=== PATIENT | male | born 1975 | race Caucasian/White ===

== ENCOUNTER 2017-12-03 10:47 | Emergency (ER) | payer SELFPAY ==
[~2017-12-03] VITALS: Ht 177.8 cm; Wt 98.0 kg
[2017-12-03 10:56] VITALS: BP 124/87
--- NOTE | 2017-12-03 13:05 | NUR ---
Patient to bed 2. RN evaluating patient at bedside.
--- NOTE | 2017-12-03 13:07 | NUR ---
PATIENT PRESENTS TO ED WITH C/O POUNDING HEADACHE WITH NAUSES X 3 DAYS----DENIES INJURY/TRAUMA NO COLD SYMPTOMS ASSOCIATED PER PT----SENSATIVE TO LIGHT AND SOUNDS AMBULATORY WITH STEADY GAIT, NO FACIAL ASYMMETRY NOTED, FULL CLEAR SPEECH HX---DENIES RX---NONE .DENIES V/D; SKIN IS PINK/WARM/DRY; AAOX4 WITH EVEN AND STEADY GAIT; LUNGS CLEAR BL; HR EVEN AND REGULAR; PT DENIES ANY FEVER, CP, SOB, OR COUGH AT THIS TIME; PATIENT STATES PAIN OF 8/10 AT THIS TIME; VSS; PATIENT POSITIONED FOR COMFORT; HOB ELEVATED; BEDRAILS UP X2; BED DOWN. ER MD MADE AWARE OF PT STATUS.
[2017-12-03] MEDS ORDERED: METOCLOPRAMIDE 10 MG/2 ML INJ VIAL IVP ONE (14:05)
[2017-12-03] MEDS ORDERED: MORPHINE SULFATE 4 MG/ML SYR IVP ONE (14:05)
[2017-12-03 14:56] LABS: BASOPHILS # (AUTO) 0.3 K/uL (0.00-0.22); HEMATOCRIT 50.1 % (36-52); LYMPHOCYTES # (AUTO) 2.2 K/uL (2.0-11.5); MEAN CORPUSCULAR HEMOGLOBIN 32 pg (27-31); MEAN CORPUSCULAR HGB CONC 34 g/dL (33-37); MEAN CORPUSCULAR VOLUME 93 fL (80-94); MONOCYTES # (AUTO) 1.6 K/uL (0.8-1.0); NEUTROPHILS # (AUTO) 8.4 K/uL (1.8-7.7); PLATELET COUNT (AUTO) 284 K/uL (140-450); RED BLOOD CELL COUNT(AUTO) 5.37 MIL/uL (4.20-6.10); RED CELL DISTRIBUTION WIDTH 11.9 % (11.6-13.7); WHITE BLOOD COUNT (AUTO) 12.5 K/uL (4.8-10.8)
[2017-12-03 15:19] LABS: ANION GAP 13.8 (8-16); CARBON DIOXIDE 27.1 mmol/L (21-32); POTASSIUM 3.9 mmol/L (3.5-5.1)
[2017-12-03 15:25] LABS: ALBUMIN 3.9 g/dL (3.4-5.0); TOTAL BILIRUBIN 1.5 mg/dL (0.0-1.0)
[2017-12-03 17:17] LABS: CSF GLUCOSE 64 mg/dL (40-70); CSF PROTEIN 18.2 mg/dL (15-45)
[2017-12-03 17:44] LABS: APPEARANCE,URINE CLEAR (CLEAR); BILIRUBIN,URINE NEGATIVE (NEGATIVE); BLOOD, URINE 2+ (NEGATIVE); COLOR,URINE YELLOW (YELLOW); LEUKOCYTE ESTERASE ,URINE 1+ (NEGATIVE); NITRITE, URINE NEGATIVE (NEGATIVE); PH,URINE 6.5 (5.0-9.0); UGLUCOSE NEGATIVE (NEGATIVE)
[2017-12-03 17:49] LABS: RBC,URINE 20-50 /HPF (0-5)
[2017-12-03 17:50] LABS: BARBITURATE, URINE NEG. ng/ml (NEG <=200); BENZODIAZEPINE, URINE NEG. ng/mL (NEG <=200); CANNABINOID, URINE POS. ng/mL (NEG <=50); COCAINE, URINE NEG. ng/mL (NEG <=300); OPIATE, URINE POS. ng/mL (NEG <=2000); PHENCYCLIDINE SCREEN,URINE NEG. ng/mL (NEG <=25)
--- NOTE | 2017-12-03 19:11 | NUR ---
RECEIVED REPORT FROM CADE KWONG
[2017-12-03 19:25] VITALS: BP 116/83
--- NOTE | 2017-12-03 19:25 | NUR ---
Patient discharged with v/s stable. Written and verbal after care instructions given and explained. Patient verbalized understanding. Ambulatory with steady gait. All questions addressed prior to discharge. Advised to follow up with PMD.
== END 2017-12-03 19:25 | disposition home or self-care (01) ==
LOC: MED 10:47
DX: R51 Headache (principal); F17.210 Nicotine dependence, cigarettes, uncomplicated
CPT/HCPCS: 36415; 62270; 70450; 71045; 80053; 80305; 81001; 82948; 84157; 84484; 85025; 85610; 85730; 87070; 87086; 87205; 87804; 93005; 96374; 96375; 99285; J2270; J2765; Q0092